=== PATIENT | female | born 1950 | race Caucasian/White ===

== ENCOUNTER → 2017-01-26 | Outpatient (CLI) | payer OTHER ==
--- NOTE | 2017-01-27 08:51 | MM ---
Reason for exam: screening (asymptomatic). Last mammogram was performed 1 year ago. History: Patient is postmenopausal and is nulliparous. Benign excisional biopsy of the left breast. Took hormonal contraceptives for 30 years beginning at age 25. Physical Findings: A clinical breast exam by your physician is recommended on an annual basis and results should be correlated with mammographic findings. MG Screening Mammo w CAD Bilateral CC and MLO view(s) were taken. Prior study comparison: January 23, 2016, bilateral MG 3d screening mammo w/cad. January 18, 2015, bilateral MG screening mammo w CAD. January 06, 2014, bilateral MG screening mammo w CAD. There are scattered fibroglandular densities. No significant changes when compared with prior studies. ASSESSMENT: Negative, BI-RAD 1 RECOMMENDATION: Routine screening mammogram of both breasts in 1 year.
== END | disposition home or self-care (01) ==
LOC: RADMAMWWP 11:13
PROVIDERS: ATTEND Family Medicine
DX: Z12.31 Encounter for screening mammogram for malignant neoplasm of breast (principal)

== ENCOUNTER → 2018-02-16 | Outpatient (CLI) | payer MEDICARE, BC ==
--- NOTE | 2018-02-16 14:39 | BD ---
EXAMINATION TYPE: Axial Bone Density DATE OF EXAM: 02/16/2018 COMPARISON: DEXA bone scan July 24, 2011 CLINICAL HISTORY: post menopausal Height: 5'3 Weight: 165 FRAX RISK QUESTIONS: Secondary Osteoporosis: RISK FACTORS HISTORY OF: Family History of Osteoporosis: y Postmenopausal woman: MEDICATIONS: Additional Medications: blood pressure, cholesterol, allergies, Additional History: EXAM MEASUREMENTS: Bone mineral densitometry was performed using the Grouper System. Bone mineral density as measured about the Lumbar spine is: ----- L1-L4(G/cm2): 1.117 T Score Values are as follows: ----- L2: -1.3 ----- L3: -1.7 ----- L4: 1.8 ----- L1-L4: -0.5 Bone mineral density has: Increased 4.7% since study of: 07/24/2011 Bone mineral density about the R hip (g/cm2): 0.699 Bone mineral density about the L hip (g/cm2): 0.686 T Score values are as follows: -----R Neck: -2.4 -----L Neck: -2.5 -----R Total: -2.0 -----L Total: -1.7 Bone mineral density has: Decreased -4.6% since study of: 07/24/2011 IMPRESSION: Osteopenia (T Score between -2.5 and -1) persists in the low back and bilateral hips. Bone density de creased or diminished from prior exam in both hips where it is felt more accurate. There remains slightly increased risk of fracture and the patient may be considered for treatment. Re-Screen 2-5 years. NOTE: T-SCORE=SD OF THE YOUNG ADULT MEAN.
--- NOTE | 2018-02-17 12:47 | MM ---
Reason for exam: screening (asymptomatic). Last mammogram was performed 1 year and 1 month ago. History: Patient is postmenopausal and is nulliparous. Benign excisional biopsy of the left breast. Took hormonal contraceptives for 30 years beginning at age 25. Physical Findings: A clinical breast exam by your physician is recommended on an annual basis and results should be correlated with mammographic findings. MG 3D Screening Mammo W/Cad Bilateral CC and MLO view(s) were taken. Prior study comparison: January 26, 2017, bilateral MG screening mammo w CAD. January 23, 2016, bilateral MG 3d screening mammo w/cad. There are scattered fibroglandular densities. Stable benign calcifications. There is no discrete abnormality. No significant changes when compared with prior studies. ASSESSMENT: Benign, BI-RAD 2 RECOMMENDATION: Routine screening mammogram of both breasts in 1 year.
== END | disposition home or self-care (01) ==
LOC: RADMAMWWP 12:43
PROVIDERS: ATTEND Family Medicine
DX: Z12.31 Encounter for screening mammogram for malignant neoplasm of breast (principal); M85.88 Other specified disorders of bone density and structure, other site; M85.852 Other specified disorders of bone density and structure, left thigh; M85.851 Other specified disorders of bone density and structure, right thigh; Z78.0 Asymptomatic menopausal state
CPT/HCPCS: 77063; 77067; 77080

== ENCOUNTER → 2019-03-02 | Outpatient (CLI) | payer MEDICARE, BC ==
--- NOTE | 2019-03-03 14:05 | MM ---
Reason for exam: screening (asymptomatic). Last mammogram was performed 1 year ago. History: Patient is postmenopausal and is nulliparous. Benign excisional biopsy of the left breast. Took hormonal contraceptives for 30 years beginning at age 25. Physical Findings: A clinical breast exam by your physician is recommended on an annual basis and results should be correlated with mammographic findings. MG 3D Screening Mammo W/Cad Bilateral CC and MLO view(s) were taken. Prior study comparison: February 16, 2018, bilateral MG 3d screening mammo w/cad. January 26, 2017, bilateral MG screening mammo w CAD. There are scattered fibroglandular densities. No suspicious abnormality. No significant changes when compared with prior studies. ASSESSMENT: Negative, BI-RAD 1 RECOMMENDATION: Routine screening mammogram of both breasts in 1 year.
== END | disposition home or self-care (01) ==
LOC: RADMAMWWP 11:05
PROVIDERS: ATTEND Family Medicine
DX: Z12.31 Encounter for screening mammogram for malignant neoplasm of breast (principal)
CPT/HCPCS: 77063; 77067

== ENCOUNTER → 2019-03-08 | Outpatient (CLI) | payer MEDICARE, BC ==
--- NOTE | 2019-03-08 15:56 | XR ---
EXAMINATION TYPE: XR chest 2V DATE OF EXAM: 03/08/2019 COMPARISON: NONE TECHNIQUE: PA and lateral views submitted. HISTORY: Cough, infection FINDINGS: The lungs are clear and there is no pneumothorax, pleural effusion, or focal pneumonia. Atheroscler otic change aorta. Hypertrophic and degenerative change vertebral column. IMPRESSION: 1. No acute process.
== END | disposition home or self-care (01) ==
LOC: RADXRMAIN 15:24
PROVIDERS: ATTEND Internal Medicine Infectious Disease
DX: B96.5 Pseudomonas (aeruginosa) (mallei) (pseudomallei) as the cause of diseases classified elsewhere (principal)
CPT/HCPCS: 71046

== ENCOUNTER 2019-03-25 08:25 | Day surgery (SDC) | payer MEDICARE, BC ==
[2019-03-24 10:57] VITALS: BMI 27.4
[~2019-03-25 08:25] MED LIST: LACTATED RINGERS 1,000 ML IV SCH; LIDOCAINE 1% 20 ML VIAL (10MG/ML) FOR IV START INTRADERMA PRN
[2019-03-25 09:07] VITALS: TEMP 98.1
[2019-03-25] MEDS ORDERED: PROPOFOL 10 MG/ML 20 ML VIAL IV ONE (10:07)
[2019-03-25] MEDS ORDERED: LIDOCAINE 1% INJ 10MG/ML (20 ML MDV) ONE (10:07)
--- NOTE | 2019-03-25 10:24 | P.PCN ---
Date of Procedure: 03/25/19 Procedure(s) Performed: BRIEF HISTORY: Patient is a 68-year-old pleasant at female scheduled for an elective colonoscopy as a part of screening for colorectal neoplasia. PROCEDURE PERFORMED: Colonoscopy. PREOPERATIVE DIAGNOSIS: Screening for colon cancer. IV sedation per Anesthesia. PROCEDURE: After informed consent was obtained, the patient, was brought into the endoscopy unit. IV sedation was administered by Anesthesia under continuous monitoring. Digital rectal examination was normal. Initially the Olympus CF-160 flexible video colonoscope was then inserted in the rectum, gradually advanced into the cecum without any difficulty. Careful examination was performed as the scope was gradually being withdrawn. Ileocecal valve and the appendiceal orifice were visualized and appeared normal. Prep was excellent. Mucosa of the cecum, ascending colon, transverse colon, descending colon, sigmoid colon, and rectum appeared normal. Moderate left-sided diverticulosis seen. Retroflexion was performed in the rectum and no lesions were seen. The patient tolerated the procedure well. IMPRESSION: Moderate sigmoid diverticulosis No evidence of colorectal neoplasia RECOMMENDATIONS: Findings of this examination were discussed with the patient as well as a family. She was advised to have a repeat screening colonoscopy in 10 years.
[2019-03-25 10:29] VITALS: RESP 18
[2019-03-25 10:50] VITALS: BP 115/54; PULSE 58
== END 2019-03-25 11:05 | disposition home or self-care (01) ==
LOC: ORWHC2ENDO 08:25
PROVIDERS: ATTEND Internal Medicine Gastroenterology
DX: Z12.11 Encounter for screening for malignant neoplasm of colon (principal); K57.30 Diverticulosis of large intestine without perforation or abscess without bleeding; I10 Essential (primary) hypertension; E78.5 Hyperlipidemia, unspecified; F39 Unspecified mood [affective] disorder; K21.9 Gastro-esophageal reflux disease without esophagitis; Z88.0 Allergy status to penicillin; Z88.2 Allergy status to sulfonamides; Z79.899 Other long term (current) drug therapy
CPT/HCPCS: G0121; J2001; J2704; 45378

== ENCOUNTER → 2019-09-16 | Outpatient (CLI) | payer MEDICARE, BC ==
[2019-09-16 15:41] LABS: Basophils % (A) 0 %; Eosinophils # (A) 0.3 k/uL (0-0.7); Eosinophils % (A) 3 %; HCT 38.7 % (34.0-46.0); HGB 12.9 gm/dL (11.4-16.0); Lymphocytes # (A) 2.6 k/uL (1.0-4.8); Lymphocytes % (A) 32 %; MCH 29.1 pg (25.0-35.0); MCHC 33.2 g/dL (31.0-37.0); MCV 87.7 fL (80.0-100.0); Mean Platelet Volume 8.1; Monocytes # (A) 0.4 k/uL (0-1.0); Monocytes % (A) 5 %; Neutrophils # (A) 4.5 k/uL (1.3-7.7); Neutrophils % (A) 57 %; Platelet Count 247 k/uL (150-450); RBC 4.41 m/uL (3.80-5.40); RDW 13.4 % (11.5-15.5)
[2019-09-16 18:24] LABS: African American GFR (CKD) 76.7 (60.0-200.0); Albumin 4.6 g/dL (3.80-4.90); Albumin/Globulin Ratio 2.09 (1.60-3.17); Anion Gap 8.2 mmol/L (4.00-12.00); BUN/Creat Ratio 22.22 Ratio (12.00-20.00); Calcium 9.6 mg/dL (8.7-10.3); Carbon Dioxide 25.8 mmol/L (21.6-31.8); Globulin 2.2 g/dL (1.6-3.3); Non-African American GFR(CKD) 66.2 (60.0-200.0); Potassium 4.4 mmol/L (3.5-5.5); Total Bilirubin 0.3 mg/dL (0.3-1.2); Total Protein 6.8 g/dL (6.2-8.2)
[2019-09-16 19:19] LABS: Anti-Smith Ab Interp NEGATIVE (NEGATIVE); DNA Double-Stranded NEGATIVE (NEGATIVE)
[2019-09-16 19:22] LABS: Dermato. farinae IgE <0.10 kU/L
[2019-09-16 19:23] LABS: Alternaria alternata IgE <0.10 kU/L; Aspergillus fumagatus IgE <0.10 kU/L; Cat Epith & Dander IgE <0.10 kU/L; Cladosporian herbarum IgE <0.10 kU/L; Cockroach IgE <0.10 kU/L; Dog Dander IgE <0.10 kU/L
[2019-09-16 19:25] LABS: Birch IgE <0.10 kU/L; Elm IgE <0.10 kU/L; Maple (Box Elder) IgE <0.10 kU/L; Oak IgE <0.10 kU/L; Ragweed,Common IgE <0.10 kU/L; Red Top (Bentgrass) IgE <0.10 kU/L
[2019-09-16 20:24] LABS: Immunoglobulin E 4.67 IU/mL (0.00-114.00)
[2019-09-16 22:06] LABS: Erythrocyte Sedimentation Rate 5 mm/hr (0-20)
== END | disposition home or self-care (01) ==
LOC: LABWHC1 14:58
PROVIDERS: ATTEND Internal Medicine Critical Care Medicine
DX: J32.9 Chronic sinusitis, unspecified (principal); R51 Headache
CPT/HCPCS: 36415; 80053; 82785; 85025; 85652; 86003; 86038; 86225; 86235; 86431

== ENCOUNTER → 2020-03-14 | Outpatient (CLI) | payer MEDICARE, BC ==
--- NOTE | 2020-03-19 08:59 | MM ---
Reason for exam: screening (asymptomatic). Last mammogram was performed 1 year ago. History: Patient is postmenopausal and is nulliparous. Benign excisional biopsy of the left breast. Took hormonal contraceptives for 30 years beginning at age 25. Physical Findings: A clinical breast exam by your physician is recommended on an annual basis and results should be correlated with mammographic findings. MG 3D Screening Mammo W/Cad Bilateral CC and MLO view(s) were taken. Prior study comparison: March 02, 2019, bilateral MG 3d screening mammo w/cad. February 16, 2018, bilateral MG 3d screening mammo w/cad. January 26, 2017, bilateral MG screening mammo w CAD. January 23, 2016, bilateral MG 3d screening mammo w/cad. There are scattered fibroglandular densities. No significant changes when compared with prior studies. ASSESSMENT: Negative, BI-RAD 1 RECOMMENDATION: Routine screening mammogram of both breasts in 1 year.
== END | disposition home or self-care (01) ==
LOC: RADMAMWWP 10:06
PROVIDERS: ATTEND Family Medicine
DX: Z12.31 Encounter for screening mammogram for malignant neoplasm of breast (principal)
CPT/HCPCS: 77063; 77067

== ENCOUNTER 2020-11-16 10:08 | Day surgery (SDC) | payer MEDICARE, BC ==
[2020-11-14 11:43] VITALS: BMI 24.7
[~2020-11-16 10:08] MED LIST changes: -LACTATED RINGERS 1,000 ML IV SCH; +LIDOCAINE 1% (10MG/ML) FOR IV START INTRADERMA PRN; -LIDOCAINE 1% 20 ML VIAL (10MG/ML) FOR IV START INTRADERMA PRN
[2020-11-16 10:41] VITALS: TEMP 98.1
[2020-11-16] MEDS: LACTATED RINGERS 1,000 ML IV SCH ×2 (10:54→11:04)
[2020-11-16] MEDS ORDERED: PROPOFOL 10 MG/ML 20 ML VIAL IV ONE (11:17)
[2020-11-16] MEDS ORDERED: LIDOCAINE 1% INJ 10MG/ML (20 ML MDV) ONE (11:17)
--- NOTE | 2020-11-16 11:27 | P.PCN ---
Date of Procedure: 11/16/20 Procedure(s) Performed: BRIEF HISTORY: Patient is a 70-year-old, pleasant, white female scheduled for an upper endoscopy as a part of evaluation of severe GERD for the last several years duration. She has been on omeprazole 20 mg daily and despite his been symptomatic and hence scheduled for an upper endoscopy to evaluate further. PROCEDURE PERFORMED: Esophagogastroduodenoscopy and biopsy. PREOPERATIVE DIAGNOSIS: Long-standing history of GERD with worsening symptoms. IV sedation per anesthesia. PROCEDURE: After informed consent was obtained, the patient was brought into the endoscopy unit. IV sedation was administered by Anesthesia under continuous monitoring. Initially the Olympus GIF-140 video endoscope was inserted into the mouth. Esophagus intubated without any difficulty. It was gradually advanced into the stomach and duodenum and carefully examined. The bulb and the second part of the duodenum appeared normal. The scope at this time was withdrawn to the stomach, adequately insufflated with air, and upon careful examination, mucosa of the antrum, had diffuse gastritis and biopsies were done from this area. The body, cardia and the fundus appeared normal. The scope was then withdrawn into the esophagus. The GE junction was located at 41 cm from the incisors. The esophagus appeared normal. There were no erosions or ulcerations seen, biopsies were done from the distal esophagus and the patient tolerated the procedure well. IMPRESSION: 1. Mild diffuse antral gastritis. 2. Normal-appearing esophagus with no evidence of esophagitis. RECOMMENDATIONS: The findings of this examination were discussed with the patient as well as his family. She was advised to follow with the biopsy results. She will well increase omeprazole to 20 mg twice daily and continue to follow antireflux measures..
[2020-11-16 11:33] VITALS: RESP 16
[2020-11-16 11:54] VITALS: BP 130/62; PULSE 63
== END 2020-11-16 12:09 | disposition home or self-care (01) ==
LOC: ORWHC2ENDO 10:08
PROVIDERS: ATTEND Internal Medicine Gastroenterology
DX: K29.50 Unspecified chronic gastritis without bleeding (principal); K21.00 Gastro-esophageal reflux disease with esophagitis, without bleeding; I10 Essential (primary) hypertension; E78.5 Hyperlipidemia, unspecified; F41.9 Anxiety disorder, unspecified; F32.9 Major depressive disorder, single episode, unspecified; R19.4 Change in bowel habit; Z97.2 Presence of dental prosthetic device (complete) (partial); Z79.1 Long term (current) use of non-steroidal anti-inflammatories (NSAID); Z79.899 Other long term (current) drug therapy; Z88.1 Allergy status to other antibiotic agents; Z88.0 Allergy status to penicillin; Z88.2 Allergy status to sulfonamides; Z88.8 Allergy status to other drugs, medicaments and biological substances
CPT/HCPCS: 88305; 43239; J2001; J2704

== ENCOUNTER → 2021-04-11 | Outpatient (CLI) | payer MEDICARE, BC ==
--- NOTE | 2021-04-12 12:55 | MM ---
Reason for exam: screening (asymptomatic). Last mammogram was performed 1 year and 1 month ago. History: Patient is postmenopausal and is nulliparous. Benign excisional biopsy of the left breast. Took hormonal contraceptives for 30 years beginning at age 25. Physical Findings: A clinical breast exam by your physician is recommended on an annual basis and results should be correlated with mammographic findings. MG 3D Screening Mammo W/Cad Bilateral CC and MLO view(s) were taken. Prior study comparison: March 14, 2020, bilateral MG 3d screening mammo w/cad. March 02, 2019, bilateral MG 3d screening mammo w/cad. There are scattered fibroglandular densities. No significant changes when compared with prior studies. ASSESSMENT: Negative, BI-RAD 1 RECOMMENDATION: Routine screening mammogram of both breasts in 1 year.
== END | disposition home or self-care (01) ==
LOC: RADMAMWWP 11:53
PROVIDERS: ATTEND Family Medicine
DX: Z12.31 Encounter for screening mammogram for malignant neoplasm of breast (principal)
CPT/HCPCS: 77063; 77067

== ENCOUNTER → 2022-04-14 | Outpatient (CLI) | payer MEDICARE, BC ==
--- NOTE | 2022-04-14 12:53 | MM ---
Reason for Exam: Screening (asymptomatic). Last screening mammogram was performed 12 month(s) ago. Patient History: Menarche at age 16. Patient has no children. Postmenopausal. Hormonal Contraceptives for 30 years from age 25 until age 56. Benign Excisional Biopsy on the left side. Risk Values: Cydney 5 year model risk: 2.1%. NCI Lifetime model risk: 6.3%. Prior Study Comparison: 03/02/2019 Bilateral Screening Mammogram, [facility]. 03/14/2020 Bilateral Screening Mammogram, [facility]. 04/11/2021 Bilateral Screening Mammogram, [facility]. Tissue Density: There are scattered fibroglandular densities. Findings: Analyzed By CAD. There is no suspicious group of microcalcifications or new suspicious mass in either breast. No significant change from prior exam. Overall Assessment: Negative, BI-RAD 1 Management: Screening Mammogram of both breasts in 1 year. A clinical breast exam by your physician is recommended on an annual basis and results should be correlated with mammographic findings. Electronically signed and approved by: Naman Johnson D.O.
== END | disposition home or self-care (01) ==
LOC: RADMAMWWP 11:53
PROVIDERS: ATTEND Family Medicine
DX: Z12.31 Encounter for screening mammogram for malignant neoplasm of breast (principal)
CPT/HCPCS: 77063; 77067

== ENCOUNTER → 2022-12-01 | Outpatient (CLI) | payer MEDICARE, BC ==
--- NOTE | 2022-12-01 18:06 | CA ---
Transthoracic Echo Report Name: Brenda Lira Age: 72 Gender: F : 1950 Exam Date: 12/01/2022 14:03 Exam Location: [place] [facility] Ht (in): 64 Wt (lb): 155 Ordering Physician: Pierre Dailey MD Attending/Referring Phys: Pierre Dailey MD Automatic Profile Sander Operator Joy Brooks [facility] Procedure CPT: Indications: r06.02 Cardiac Hx: Technical Quality: Fair Contrast 1: Total Dose (mL): Contrast 2: Total Dose (mL): MEASUREMENTS (Male / Female) Normal Values 2D ECHO LV Diastolic Diameter PLAX 3.8 cm 4.2 - 5.9 / 3.9 - 5.3 cm LV Systolic Diameter PLAX 2.7 cm IVS Diastolic Thickness 1.2 cm 0.6 - 1.0 / 0.6 - 0.9 cm LVPW Diastolic Thickness 1.1 cm 0.6 - 1.0 / 0.6 - 0.9 cm LV Relative Wall Thickness 0.6 RV Internal Dim ED PLAX 3.1 cm LA Systolic Diameter LX 3.4 cm 3.0 - 4.0 / 2.7 - 3.8 cm LA Volume 37.7 cm??? 18 - 58 / 22 - 52 cm??? M-MODE Aortic Root Diameter MM 3.1 cm MV E Point Septal Separation 0.2 cm AV Cusp Separation MM 1.6 cm DOPPLER AV Peak Velocity 124.9 cm/s AV Peak Gradient 6.2 mmHg MV Area PHT 1.5 cm??? Mitral E Point Velocity 36.8 cm/s Mitral A Point Velocity 75.6 cm/s Mitral E to A Ratio 0.5 MV Deceleration Time 503.4 ms MV E' Velocity 3.5 cm/s Mitral E to MV E' Ratio 10.5 TR Peak Velocity 225.0 cm/s TR Peak Gradient 20.3 mmHg Right Ventricular Systolic Press 25.3 mmHg FINDINGS Left Ventricle Left ventricular ejection fraction is estimated at 55-60 %. Small left ventricular cavity. Mildly increased septal wall thickness. Mildly increased posterior wall thickness.left ventricular cavity size normal. Right Ventricle Normal right ventricular size and function. Right ventricular systolic pressure within normal limits. Right Atrium Normal right atrial size. Left Atrium Normal left atrial size. Intra-atrial septum highly mobile Mitral Valve Structurally normal mitral valve. No mitral stenosis,or prolapse.trace to mild mitral regurgitation. Aortic Valve Trileaflet aortic valve. No aortic stenosis. Aortic valve sclerosis. Tricuspid Valve Structurally normal tricuspid valve. Mild tricuspid regurgitation. Pulmonic Valve Structurally normal pulmonic valve. Trace pulmonic regurgitation. Pericardium Normal pericardium. No pericardial effusion. Aorta Normal size aortic root and proximal ascending aorta. CONCLUSIONS 1. Normal left ventricle size and systolic function 2. Mild tricuspid with trace to mild mitral regurgitation Previewed by: Dr. Enrico Alcantara MD (Electronically Signed) Final Date: 01 Dec 2022 18:05
== END | disposition home or self-care (01) ==
LOC: RADECHMAIN 13:26
PROVIDERS: ATTEND Family Medicine
DX: I08.3 Combined rheumatic disorders of mitral, aortic and tricuspid valves (principal); R06.02 Shortness of breath
CPT/HCPCS: 93306

== ENCOUNTER → 2023-05-19 | Outpatient (CLI) | payer MEDICARE, BC ==
--- NOTE | 2023-05-24 11:54 | MR ---
EXAMINATION TYPE: MR brain wo/w con DATE OF EXAM: 05/19/2023 COMPARISON: CT brain 05-25 HISTORY: Headaches, dizziness CONTRAST: Performed utilizing 7 mL intravenous Gadavist gadolinium contrast. TECHNIQUE: Multiplanar, multiecho imaging on a 3.0 Yanely magnet is performed through the brain. Stud y is performed within 24 hours of arrival to the hospital. The craniovertebral junction is normal. The pituitary is normal. Optic chiasm is visualized is norm al Diffusion-weighted imaging is performed. No abnormal hyperintensity is present to suggest an acute i ntracranial infarct or acute ischemic change. There are patchy to confluent areas of hyperintensity on T2 and Inversion Recovery weighted sequences which are non-specific but can be related to microvascular ischemic changes. There is a very hypointense area within the medial mid right cerebellum. There appears to be blooming artifact present suggesting underlying cavernous angioma. This is hypointense on T2 and measures 0.3 cm. Example image series 401 image 7. Differential diagnosis could include prior tiny hemorrhage at this location Ventricles and sulci are appropriate for the patient age. No abnormal enhancement is evident. IMPRESSION: 1. Chronic appearing periventricular and deep white matter ischemic-type changes. 2. 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
== END | disposition home or self-care (01) ==
LOC: RADMRIMAIN 17:15
PROVIDERS: ATTEND Internal Medicine
DX: G93.89 Other specified disorders of brain (principal); I67.82 Cerebral ischemia
CPT/HCPCS: 70553; A9585

== ENCOUNTER → 2023-05-28 | Outpatient (CLI) | payer MEDICARE, BC ==
--- NOTE | 2023-05-29 07:36 | MM ---
Reason for Exam: Screening (asymptomatic). Last mammogram was performed 1 year(s) and 1 month(s) ago. Patient History: Menarche at age 16. Patient has no children. Postmenopausal. Hormonal Contraceptives for 30 years from age 25 until age 56. Benign Excisional Biopsy on the left side. Risk Values: Cydney 5 year model risk: 2.1%. NCI Lifetime model risk: 6.0%. Prior Study Comparison: 03/14/2020 Bilateral Screening Mammogram, [facility]. 04/11/2021 Bilateral Screening Mammogram, [facility]. 04/14/2022 Bilateral MG 3D screening mammo w/cad, [facility]. Tissue Density: There are scattered fibroglandular densities. Findings: Analyzed By CAD. There is no suspicious group of microcalcifications or new suspicious mass in either breast. Overall Assessment: Negative, BI-RAD 1 Management: Screening Mammogram of both breasts in 1 year. A clinical breast exam by your physician is recommended on an annual basis and results should be correlated with mammographic findings. Note on Cydney scores and lifetime risk: 1. A Cydney score greater than 3% is considered moderate risk. If this is the case, consider specialist referral to assess eligibility for a risk reducing agent. If overall lifetime risk for the development of breast cancer is 20% or higher, the patient may qualify for future screening with alternating mammogram and breast MRI. Electronically signed and approved by: Naman Johnson D.O.
== END | disposition home or self-care (01) ==
LOC: RADMAMWWP 13:57
PROVIDERS: ATTEND Internal Medicine
DX: Z12.31 Encounter for screening mammogram for malignant neoplasm of breast (principal); Z78.0 Asymptomatic menopausal state
CPT/HCPCS: 77063; 77067

== ENCOUNTER → 2023-10-28 | Outpatient (CLI) | payer MEDICARE, BC ==
[2023-10-28 18:18] LABS: Partial Thromboplastin Time 22.9 sec (22.0-30.0); Prothrombin Time 10.6 sec (10.0-12.5)
[2023-10-29 03:28] LABS: Homocysteine 9.79 UMOL/L (4.00-14.00)
[2023-10-29 04:09] LABS: Cardiolipin Ab IgG Interp Negative (Negative); Cardiolipin Ab IgM Interp Negative (Negative); Cardiolipin IgA Antibody <2.0 U/mL; Cardiolipin IgM Antibody <1.5 U/mL
== END | disposition home or self-care (01) ==
LOC: LABWHC1 15:44
PROVIDERS: ATTEND Psychiatry & Neurology Neurology
DX: I63.9 Cerebral infarction, unspecified (principal); R90.82 White matter disease, unspecified
CPT/HCPCS: 36415; 83090; 85610; 85730; 86147

== ENCOUNTER 2024-01-04 16:20 | Emergency (ER) | payer MEDICARE, BC ==
--- NOTE | 2024-01-04 17:13 | ED ---
Extremity Problem HPI - General Source: patient, RN notes reviewed Mode of arrival: wheelchair Limitations: no limitations <Toyin Gordon - Last Filed: 01/04/24 17:12> <Olu Bueno - Last Filed: 01/05/24 01:30> - General Stated complaint: Neck/Shoulder Pain Time Seen by Provider: 01/04/24 17:12 - History of Present Illness Initial comments: Quick note: 73-year-old female presented to the ER with a chief complaint of right shoulder/neck tightness. She reports this been an ongoing problem and she has been following up with therapy. She states for the past 5 days tightness has been increasing. Denies any new traumas or injuries. (Toyin Gordon) Patient is a 73-year-old female presents emergency department complaining of acute on chronic bilateral shoulder and neck pain. Is seeing physical therapy for this. States it has been ongoing for months. Worse over the last few days. Worse with movements of the shoulders and neck. Presents for further evaluation. No recent trauma. Is following up with her PCP for management of this. (Olu Bueno) - Related Data Home Medications Medication Instructions Recorded Confirmed Ca/D3/Mag/Zinc/Juan R/Tab/Mgbor 1 tab PO BID 10/07/15 11/16/20 [Caltrate 600+D3+Min Chew Tab] Cetirizine HCl [Zyrtec] 10 mg PO DAILY 10/07/15 11/16/20 Ezetimibe [Zetia] 10 mg PO DAILY 10/07/15 11/16/20 L.acidoph,Paracasei, B.lactis 1 tab PO DAILY 10/07/15 11/16/20 [Probiotic] Meclizine [Antivert] 25 tab PO TID PRN 10/07/15 11/16/20 Montelukast [Singulair] 10 mg PO DAILY 10/07/15 11/16/20 [place]-3 Fatty Acids/Fish Oil [Fish 1,000 mg PO BID 10/07/15 11/16/20 Oil 1,000 mg Softgel] Omeprazole [PriLOSEC] 20 tab PO HS 10/07/15 11/16/20 Sertraline [Zoloft] 150 mg PO DAILY 10/07/15 11/16/20 ALPRAZolam [Xanax] 0.5 mg PO DAILY PRN 03/24/19 11/16/20 Ascorbic Acid [Vitamin C] 500 mg PO DAILY 03/24/19 11/16/20 Cyanocobalamin [Vitamin B-12] 250 mcg PO BID 03/24/19 11/16/20 Fluticasone Nasal [place] [Flonase 2 spr EA NOSTRIL DAILY PRN 03/24/19 11/16/20 Nasal [place]] Garlic 1,500 mg PO DAILY 03/24/19 11/16/20 Magnesium Oxide [[place]] 500 mg PO HS 03/24/19 11/16/20 Multivitamins, Thera [Multivitamin 1 tab PO DAILY 03/24/19 11/16/20 (formulary)] Naproxen [Naprosyn] 500 mg PO Q12HR 03/24/19 11/16/20 Ubidecarenone [Co Q-10] 100 mg PO HS 03/24/19 11/16/20 Meloxicam [Mobic] 7.5 mg PO DAILY 11/14/20 11/16/20 traZODone HCL 100 mg PO HS 11/14/20 11/16/20 Previous Rx's Medication Instructions Recorded methocarbamoL [Robaxin-750] 750 mg PO TID PRN 7 Days #21 tab 01/04/24 Allergies Allergy/AdvReac Type Severity Reaction Status Date / Time Sulfa (Sulfonamide Allergy Rash/Hives Verified 01/04/24 17:26 Antibiotics) sulfamethoxazole Allergy Rash/Hives Verified 01/04/24 17:26 [From Bactrim] trimethoprim [From Bactrim] Allergy Rash/Hives Verified 01/04/24 17:26 ciprofloxacin [From Cipro] AdvReac VERY WEAK Verified 01/04/24 17:26 guaifenesin [From Mucinex D] AdvReac Unknown Verified 01/04/24 17:26 metronidazole [From Flagyl] AdvReac VERY WEAK Verified 01/04/24 17:26 moxifloxacin [From Avelox] AdvReac VERY WEAK Verified 01/04/24 17:26 Penicillins AdvReac Rash/Hives Verified 01/04/24 17:26 pseudoephedrine AdvReac Unknown Verified 01/04/24 17:26 [From Mucinex D] Qmlmhje-LZK-UhF Reductase AdvReac HEAVINESS Verified 01/04/24 17:26 Inhibitor IN LEGS [Abrziwb-Cle-Slw Reductase Inhibitor] Review of Systems ROS Other: All systems not noted in ROS Statement are negative. <Toyin Gordon - Last Filed: 01/04/24 17:12> ROS Other: All systems not noted in ROS Statement are negative. <Olu Bueno - Last Filed: 01/05/24 01:30> ROS Statement: Those systems with pertinent positive or pertinent negative responses have been documented in the HPI. Review of Systems: CONST: Denies fever EYES: Denies blurry vision ENT: Denies nasal congestion C/V: Denies Chest pain RESP: Denies shortness of breath GI: Denies abdominal pain : Denies dysuria SKIN: Denies rash. MSK: Endorses bilateral shoulder pain, neck pain NEURO: Denies headache (Olu Bueno) Past Medical History Past Medical History: GERD/Reflux, Hyperlipidemia, Hypertension, Respiratory Disorder Additional Past Medical History / Comment(s): INCREASE IN ACID REFLUX, IBS, CHANGE IN BOWEL HABITS, A LOT OF PHLEGM IN THROAT. SINUS/ALLERGIES. TOLD HAD PSUEDOMONAS IN SPUTUM, SAW DR Cyndi REEVES 03/08/19, TOLD IS NOT ACTIVE. History of Any Multi-Drug Resistant Organisms: None Reported Additional Past Surgical History / Comment(s): Lung biopsy. Colonoscopy. Past Anesthesia/Blood Transfusion Reactions: Motion Sickness Smoking Status: Never smoker - Past Family History Father Family Medical History: Cancer Additional Family Medical History / Comment(s): Prostate CA <Toyin Gordon - Last Filed: 01/04/24 17:12> General Exam <Toyin Gordon - Last Filed: 01/04/24 17:12> <Olu Bueno - Last Filed: 01/05/24 01:30> - General Exam Comments Initial Comments: Visual Physical Exam Vital signs reviewed General: Well-appearing, nontoxic, no acute distress. Head: Normocephalic, atraumatic Eyes: PERRLA, EOMI ENT: Airway patent Chest: Nonlabored breathing Skin: No visual rash, normal skin tone Neuro: Alert and oriented 3 Musculoskeletal: No gross abnormalities (Toyin Gordon) General: Appears in no acute distress. HEAD: Normal with no signs of head trauma. EYES: PERRLA, EOMI, conjunctiva normal, no discharge. ENT: Hearing grossly intact, normal oropharynx. RESPIRATORY: Clear breath sounds bilaterally. No wheezes, rales, or rhonchi. C/V: Regular rate and rhythm. S1 and S2 auscultated, no edema, peripheral pulses 2+ and intact throughout ABD: Abd is soft, nontender, nondistended EXT: Normal range of motion, no obvious deformity patient bilateral shoulders, mild paraspinal muscle tenderness to palpation of the cervical spine. No thoracic or lumbar spine tenderness to palpation. SKIN: No rashes or lesions observed on exposed skin. NEURO: Alert and oriented x 4. No focal sensory or strength deficits appreciated. Pain with movement of the shoulders. (Olu Bueno) Course Vital Signs 01/04/24 01/04/24 17:22 19:48 Temperature 97.8 F Pulse Rate 83 84 Respiratory 16 16 Rate Blood Pressure 129/64 158/91 O2 Sat by Pulse 95 96 Oximetry Medical Decision Making <Toyin Gordon - Last Filed: 01/04/24 17:12> <Olu Bueno - Last Filed: 01/05/24 01:30> - Medical Decision Making I performed the quick note portion of this chart. Electronically signed by Toyin Gordon PA-C (Toyin Gordon) Was pt. sent in by a medical professional or institution (CHARISSE Burton, CLINICAL MARKETING MANAGER, urgent care, hospital, or fpc...) When possible be specific @ -No Did you speak to anyone other than the patient for history (EMS, parent, family, police, friend...)? What history was obtained from this source @ -No Did you review nursing and triage notes (agree or disagree)? Why? @ -I reviewed and agree with nursing and triage notes Were old charts reviewed (outside hosp., previous admission, EMS record, old EKG, old radiological studies, urgent care reports/EKG's, fpc records)? Report findings @ -No old charts were reviewed Differential Diagnosis (chest pain, altered mental status, abdominal pain women, abdominal pain men, vaginal bleeding, weakness, fever, dyspnea, syncope, headache, dizziness, GI bleed, back pain, seizure, CVA, palpatations, mental health, musculoskeletal)? @ -Differential Musculoskeletal Muscular strain, contusion, ligament sprain, fracture, arthritis, septic arthritis, bursitis, cellulitis, muscle spasm, nerve compression, DVT, arterial occlusion, herpes zoster, electrolyte abnormality, tumor.... This is not meant to be in all inclusive list EKG interpreted by me (3pts min.). @ -None done X-rays interpreted by me (1pt min.). @ -X-rays of the cervical spine and right shoulder negative for any obvious traumatic injury. Chronic degenerative changes present. CT interpreted by me (1pt min.). @ -None done U/S interpreted by me (1pt. min.). @ -None done What testing was considered but not performed or refused? (CT, X-rays, U/S, labs)? Why? @ -None What meds were considered but not given or refused? Why? @ -None Did you discuss the management of the patient with other professionals (justin griffin i.eDereje Burton, PA, CLINICAL MARKETING MANAGER, lab, RT, psych nurse, social worker delinquency prevention, facilities maintenance supervisor, teacher, loans officer, machine adjuster leader case trim)? Give summary @ -No Was smoking cessation discussed for >3mins.? @ -No Was critical care preformed (if so, how long)? @ -No Were there social determinants of health that impacted care today? How? (Homelessness, low income, unemployed, alcoholism, drug addiction, transportation, low edu. Level, literacy, decrease access to med. care, alf, rehab)? @ -No Was there de-escalation of care discussed even if they declined (Discuss DNR or withdrawal of care, Hospice)? DNR status @ -No What co-morbidities impacted this encounter? (DM, HTN, Smoking, COPD, CAD, Cancer, CVA, ARF, Chemo, Hep., AIDS, mental health diagnosis, sleep apnea, morbid obesity)? @ -None Was patient admitted / discharged? Hospital course, mention meds given and route, prescriptions, significant lab abnormalities, going to OR and other pertinent info. @ -Patient presents with musculoskeletal right shoulder and neck pain. Is chronic for the patient. No obvious findings on x-ray. Originally seen as a quick note. I evaluated patient when she was placed in a hallway bed. We discussed her results. I believe it is safer to follow-up with her physician and she will also be given a spine surgeon if she could be having some cervical radicular symptoms. She was in agreement this plan. Vital signs within ac ceptable limits. I will provide the patient with a prescription for Baqsimi. I instructed the patient to follow up with their PCP in the next 1-3 days. I provided contact information for follow up with spine orthopedics. I explained that the patient should return to the emergency department if they experience any worsening symptoms. Strict return precautions were discussed with the patient. The patient expressed understanding of these instructions. I answered all questions that the patient had. The patient was discharged home in fair condition with their prescriptions and follow up information. Undiagnosed new problem with uncertain prognosis? @ -No Drug Therapy requiring intensive monitoring for toxicity (Heparin, Nitro, Insulin, Cardizem)? @ -No Were any procedures done? @ -No Diagnosis/symptom? @ -Arthritis, neck strain Acute, or Chronic, or Acute on Chronic? @ -Acute on chronic Uncomplicated (without systemic symptoms) or Complicated (systemic symptoms)? @ -Uncomplicated Side effects of treatment? @ -No Exacerbation, Progression, or Severe Exacerbation? @ -No Poses a threat to life or bodily function? How? (Chest pain, [place], [place], pneumonia, PE, COPD, DKA, ARF, appy, cholecystitis, CVA, Diverticulitis, Homicidal, Suicidal, threat to staff... and all critical care pts) @ -Unlikely (Olu Bueno) Disposition <Toyin Gordon - Last Filed: 01/04/24 17:12> Is patient prescribed a controlled substance at d/c from ED?: No Time of Disposition: 19:18 <Olu Bueno - Last Filed: 01/05/24 01:30> Clinical Impression: Arthritis, Neck strain Disposition: HOME SELF-CARE Condition: Fair Instructions (If sedation given, give patient instructions): Cervical Strain (ED), Muscle Strain (ED), Neck Pain (ED) Prescriptions: methocarbamoL [Robaxin-750] 750 mg PO TID PRN 7 Days #21 tab PRN Reason: Pain Referrals: Moses Flores DO [Primary Care Provider] - 1-2 days Deo uDenas DO [Doctor of Osteopathic Medicine] - 1-2 days
[2024-01-04 17:25] VITALS: RESP 16
--- NOTE | 2024-01-04 18:11 | XR ---
EXAMINATION TYPE: XR cervical spine comp DATE OF EXAM: 01/04/2024 5:56 PM CLINICAL INDICATION:Female, 73 years old with history of pain; [facility] COMPARISON: None TECHNIQUE: The cervical spine was imaged in frontal, lateral, odontoid and bilateral oblique. FINDINGS: The osseous structures show normal alignment without evidence of an acute fracture. There are osteoph ytes noted throughout the cervical spine on the anterior and lateral aspects of the vertebral bodies. The intervertebral disk spaces are narrowed at multiple levels. Pedicles are intact. Soft tissues a re within normal limits. The odontoid appears intact. IMPRESSION: 1. No fracture or dislocation. 2. Moderate to severe degenerative disc disease changes of the cervical spine.
--- NOTE | 2024-01-04 18:18 | XR ---
EXAMINATION TYPE: XR shoulder limited RT DATE OF EXAM: 01/04/2024 5:56 PM CLINICAL INDICATION:Female, 73 years old with history of pain; [facility] COMPARISON: None TECHNIQUE: XR shoulder limited RT; examined in frontal and crosstable projections. FINDINGS: No evidence of acute osseous pathology, joint dislocation, or soft tissue swelling. The remaining po rtions of the visualized chest are unremarkable. Degeneration changes of the acromion, distal clavic le with osteophyte formation. There is osteophyte formation of the glenoid and humeral head. There is joint space narrowing of glenohumeral joint IMPRESSION: 1. No acute osseous pathology. 2. Moderate shoulder osteoarthrosis.
[2024-01-04] MEDS: methocarbamoL 750 MG TAB PO STA (19:45)
[2024-01-04] MEDS: ACET/COD 300 MG/30 MG STARTER PACK 6 TAB BTL PO STA (19:46)
[2024-01-04 19:50] VITALS: BP 158/91; PULSE 84; TEMP 97.8
== END 2024-01-04 19:57 | disposition home or self-care (01) ==
LOC: EC 16:20
DX: S16.1XXA Strain of muscle, fascia and tendon at neck level, initial encounter (principal); Z88.2 Allergy status to sulfonamides; Z88.1 Allergy status to other antibiotic agents; Z88.0 Allergy status to penicillin; Z88.8 Allergy status to other drugs, medicaments and biological substances; X58.XXXA Exposure to other specified factors, initial encounter
CPT/HCPCS: 72050; 99283

== ENCOUNTER → 2024-03-25 | Outpatient (CLI) | payer MEDICARE, BC ==
--- NOTE | 2024-04-20 16:10 | US ---
Patient: Brenda Cordoba Ordering Physician: Unknown, Unknown ID: [id number] Phone, Pager: Phone: N/A Pager: N/A : 1950 Age/Gender: 73Y, F Primary Location: N/A Procedure: US Carotid Duplex Bilateral Study Date: 03/25/2024 1:02:00 PM EXAMINATION TYPE: US carotid duplex BILAT DATE OF EXAM: 03/25/2024 COMPARISON: NONE CLINICAL INDICATION: 73-year-old female vertigo, imbalance, shortness of breath TECHNIQUE: Carotid duplex ultrasound examination. Indirect Doppler criteria was utilized. FINDINGS: EXAM MEASUREMENTS: RIGHT: Peak Systolic Velocity (PSV) cm/sec ----- Right CCA: 110 ----- Right ICA: 160 ----- Right ECA: 94.4 ICA/CCA ratio: 2.9 RIGHT: End Diastole cm/sec ----- Right CCA: 60.3 ----- Right ICA: 42.9 ----- Right ECA: 8.8 LEFT: Peak Systolic Velocity (PSV) cm/sec ----- Left CCA: 60.0 ----- Left ICA: 56.3 ----- Left ECA: 54.4 ICA/CCA ratio: 0.96 LEFT: End Diastole cm/sec ----- Left CCA: 12.4 ----- Left ICA: 16.9 ----- Left ECA: 0 VERTEBRALS (direction of flow): Right Vertebral: Antegrade Left Vertebral: Antegrade QUALITY CONTROL CLERK NOTES: Increased velocities right ICA, vessel tortuosity IMPRESSION: Elevated velocities right ICA suggesting a moderate (50-69%) stenosis. Criteria for Assigning % of Stenosis / Diameter reduction (Estimation based on the indirect measurements of the internal carotid artery velocities (ICA PSV). 1. Normal (no stenosis)=ICA PSV < 125 cm/s: ratio < 2.0: ICA EDV<40 cm/s. 2. Less than 50% stenosis=ICA PSV < 125 cm/s: ratio < 2.0: ICA EDV<40 cm/s. 3. 50 to 69% stenosis=ICA PSV of 125 to 230 cm/s: ration 2.0 ? 4.0: ICA EDV 40-100 cm/s. 4. Greater than 70% stenosis to near occlusion= ICA PSV > 230 cm/s: ratio > 4.0: ICA EDV > 100 cm/s. 5. Near occlusion= ICA PSV velocities may be low or undetectable: variable ratio and ICA EDV. 6. Total occlusion=unable to detect flow.
== END | disposition home or self-care (01) ==
LOC: RADUSWWP 12:45
PROVIDERS: ATTEND Internal Medicine
DX: R26.89 Other abnormalities of gait and mobility (principal); R42 Dizziness and giddiness
CPT/HCPCS: 93880

== ENCOUNTER → 2024-05-30 | Outpatient (CLI) | payer MEDICARE, BC ==
--- NOTE | 2024-05-30 17:37 | BD ---
EXAMINATION TYPE: Axial Bone Density DATE OF EXAM: 05/30/2024 CLINICAL HISTORY: 73 years old Female. ICD-10 CODE: Z78.0 MENOPAUSAL ASYMP Height: 63 Weight: 150 FRAX RISK QUESTIONS: Secondary Osteoporosis: RISK FACTORS HISTORY OF: MEDICATIONS: EXAM MEASUREMENTS: Bone mineral densitometry was performed using the [employer] System. Bone mineral density as measured about the Lumbar spine is: ----- L1-L4(G/cm2): 1.119 T Score Values are as follows: ----- L1: -0.2 ----- L2: -1.5 ----- L3: -0.2 ----- L4: -0.3 ----- L1-L4: -0.5 Z Score Values are as follows: ----- L1: 1.4 ----- L2: 0.1 ----- L3: 1.4 ----- L4: 1.3 ----- L1-L4: 1.1 Bone mineral density has: Increased 0.2% since study of: 02-16-18 Bone mineral density about the R hip (g/cm2): 0.662 Bone mineral density about the L hip (g/cm2): 0.716 T Score values are as follows: -----R Neck: -3.2 -----L Neck: -3.2 -----R Total: -2.7 -----L Total: -2.3 Z Score values are as follows: -----R Neck: -1.6 -----L Neck: -1.5 -----R Total: -1.3 -----L Total: -0.8 Bone mineral density has: Decreased -11.0% since study of: 02-16-18 FRAX%s: The graph provided illustrates a 22.4% chance for a major osteoporotic fx and a 8.7% chance f or the hips probability for fx in 10 years time. IMPRESSION: Osteoporosis (T Score less than -2.5). There is increased fracture risk and therapy is usually indicated based on age. Re-Screen 1-2 years. NOTE: T-SCORE=SD OF THE YOUNG ADULT MEAN. [facility], , 05/30/2024 5:35 PM
--- NOTE | 2024-05-31 10:54 | MM ---
Reason for Exam: Screening (asymptomatic). Last screening mammogram was performed 12 month(s) ago. Patient History: Menarche at age 16. Patient has no children. Postmenopausal. Hormonal Contraceptives for 30 years from age 25 until age 56. Benign Excisional Biopsy on the left side. Risk Values: Cydney 5 year model risk: 2.1%. NCI Lifetime model risk: 5.8%. Prior Study Comparison: 04/11/2021 Bilateral Screening Mammogram, [facility]. 04/14/2022 Bilateral MG 3D screening mammo w/cad, [facility]. 05/28/2023 Bilateral MG 3D screening mammo w/cad, [facility]. Tissue Density: There are scattered areas of fibroglandular density. Findings: Analyzed By CAD. There is no suspicious group of microcalcifications or new suspicious mass in either breast. Overall Assessment: Negative, BI-RAD 1 Management: Screening Mammogram of both breasts in 1 year. . Patient should continue monthly self-breast exams. A clinical breast exam by your physician is recommended on an annual basis. This exam should not preclude additional follow-up of suspicious palpable abnormalities. Note on Cydney scores and lifetime risk: 1. A Cydney score greater than 3% is considered moderate risk. If this is the case, consider specialist referral to assess eligibility for a risk reducing agent. 2. If overall lifetime risk for the development of breast cancer is 20% or higher, the patient may qualify for future screening with alternating mammogram and breast MRI. [facility], , 05/31/2024 10:52 AM. Electronically signed and approved by: Armando Patel M.D. Radiologist
== END | disposition home or self-care (01) ==
LOC: RADMAMWWP 12:49
PROVIDERS: ATTEND Internal Medicine
CPT/HCPCS: 77063; 77067; 77080

== ENCOUNTER → 2024-12-12 | Outpatient (CLI) | payer MEDICARE, BC ==
--- NOTE | 2024-12-12 14:46 | US ---
EXAMINATION TYPE: US groin LT DATE OF EXAM: 12/12/2024 COMPARISON: NONE CLINICAL INDICATION: Female, 74 years old with history of R19.09 NODULLE OF GROIN; Palpable lump ante rior upper left thigh Technique: Grayscale and color Doppler imaging of the subcutaneous tissues. Findings: Left upper anterior thigh - 2.0 x 0.9 x 2.4cm hyperechoic area seen at patient's palpable No organizing fluid collection. No lymphadenopathy. No suspicious mass. IMPRESSION: Hyperechoic lesion most compatible with lipid containing lesion such as a lipoma. [facility], , 12/12/2024 2:44 PM
--- NOTE | 2024-12-12 14:52 | MM ---
Reason for Exam: Clinical finding. Last screening mammogram was performed 7 month(s) ago. Patient History: Menarche at age 16. Patient has no children. Postmenopausal. Hormonal Contraceptives for 30 years from age 25 until age 56. Benign Excisional Biopsy on the left side. Risk Values: Cydney 5 year model risk: 2.1%. NCI Lifetime model risk: 5.5%. Prior Study Comparison: 04/14/2022 Bilateral MG 3D screening mammo w/cad, [facility]. 05/28/2023 Bilateral MG 3D screening mammo w/cad, [facility]. 05/30/2024 Bilateral MG 3D screening mammo w/cad, [facility]. Tissue Density: Right: There are scattered areas of fibroglandular density. Findings: Analyzed By CAD. Benign appearing right axillary lymph nodes are redemonstrated. No suspicious new mass or microcalcifications in the right breast. Overall Assessment: Incomplete: need additional imaging evaluation, BI-RAD 0 Management: Diagnostic Breast Ultrasound of the right breast. Targeted ultrasound right breast due to palpable abnormality. Results were given to the patient verbally at the time of exam. Patient should continue monthly self-breast exams. A clinical breast exam by your physician is recommended on an annual basis. This exam should not preclude additional follow-up of suspicious palpable abnormalities. Note on Cydney scores and lifetime risk: 1. A Cydney score greater than 3% is considered moderate risk. If this is the case, consider specialist referral to assess eligibility for a risk reducing agent. 2. If overall lifetime risk for the development of breast cancer is 20% or higher, the patient may qualify for future screening with alternating mammogram and breast MRI. [facility], , 12/12/2024 2:49 PM. Electronically signed and approved by: Rickie Lopez M.D.
== END | disposition home or self-care (01) ==
LOC: RADUSWWP 14:18
PROVIDERS: ATTEND Internal Medicine
DX: R92.321 Mammographic fibroglandular density, right breast (principal); N64.4 Mastodynia; R19.09 Other intra-abdominal and pelvic swelling, mass and lump; Z78.0 Asymptomatic menopausal state; Z92.0 Personal history of contraception
CPT/HCPCS: 77065; 76882; G0279; 77061

== ENCOUNTER → 2025-01-23 | Outpatient (CLI) | payer MEDICARE, BC ==
[~2025-01-23] MED LIST changes: -LIDOCAINE 1% (10MG/ML) FOR IV START INTRADERMA PRN; +REGADENOSON 0.4 MG/5 ML SYRINGE IV PRN
--- NOTE | 2025-01-23 13:01 | CA ---
Lexiscan Nuclear Stress Test Report Name: Brenda Lira Exam Date: 01/23/2025 10:57 Exam Location: [place] Stress Ht (in): 65 Wt (lb): 149 BSA: 1.75 Ordering Phys: Moses Flores DO Referring Phys: CHATO Technologist: Alexandru Brush Age: 74 Gender: F : 1950 Procedure CPT: Indications: R06.00 DYSPNEA, UNSPECIFIED ICD-10 Codes: Patient History: DIFFICULTY IN BREATHING, ASTHMA Medications: MUCINEX,,,, ZYRTEC,,,, ASA 81 mg,,,, VITAMIN C,,,, VITAMIN B12,,,, FOSAMAX,,,, GARLIC,,,, ALEVE,,,, PROTONIX,,, Meds past 24 hrs: Pretest Chest Pain: STRESS TEST Lexiscan Protocol Exercise Duration (min:sec): 01:[address] Depressions (mm): Angina Score: Rae Score: Resting HR (bpm): 60 Peak HR (bpm): 105 Resting BP (mmHg): 126 / 79 Peak BP (mmHg): 126 / 79 MPHR: 148 Target HR: 126 % MPHR: 71 METS: 1.0 Total Dose: Peak Dose: Atropine: Double Product: [id number] BP Response: Stress Termination: INFUSION COMPLETE Stress Symptoms: DIFFICULTY IN BREATHING Stress Summary: ECG ANALYSIS Resting ECG: Stress ECG: CONCLUSIONS Baseline EKG revealed normal sinus rhythm without significant ST-T changes. With Lexiscan administration the heart rate went up from 62/min to 101 bpm and the blood pressure changed from 126/79 to 120/63. No angina had transient shortness of breath. EKG remained unremarkable. By EKG criteria this is unremarkable Lexiscan stress test. The nuclear scan results will be reported by the radiologist Dr. Chad Hoover MD (Electronically Signed) Final Date: 23 January 2025 13:00
--- NOTE | 2025-01-23 15:15 | NM ---
EXAMINATION TYPE: NM stress lexiscan cardiolite DATE OF EXAM: 01/23/2025 COMPARISON: NONE CLINICAL INDICATION: Female, 74 years old with history of R06.00 DYSPNEA, UNSPECIFIED; shortness of b reath TECHNIQUE: After the intravenous administration of 9.4 mCi Tc 99m Sestamibi - Cardiolite resting SPE CT images acquired 63 minutes post injection. The patient received 0.4mg Lexiscan, 24.4 mCi Tc 99m Sestamibi - Stress images obtained [address] injection FINDINGS: Review of stress and rest SPECT images demonstrates no distinct perfusion abnormality. Gated analysi s shows normal wall motion with an estimated left ventricular ejection fraction of 85 %. TID is abno rmally increased, measured at 1.47. IMPRESSION: While no focal reversibility is seen, the transient ischemic dilatation ratio is abnormally increased . This increased value can be seen in the setting of multivessel, global inducible ischemia. Further EKG and clinical correlation recommended. [facility], , 01/23/2025 3:13 PM
== END | disposition home or self-care (01) ==
LOC: RADNMMAIN 09:05
PROVIDERS: ATTEND Internal Medicine
DX: J45.909 Unspecified asthma, uncomplicated (principal)
CPT/HCPCS: 93017; 78452; A9500; J2785